=== PATIENT | female | born 1980 | race Two or more races ===

== ENCOUNTER → 2021-02-23 08:24 | Outpatient (CLI) | payer SELFPAY ==
--- NOTE | ~2021-02-23 | US_ITS ---
US thyroid INDICATION: Dysphasia and enlarged thyroid. TECHNIQUE: Real-time sonographic images of the thyroid gland were obtained. COMPARISON: No prior studies for comparison. FINDINGS: The right thyroid lobe measures 5.3 x 1.8 x 1.9 cm. The left thyroid lobe measures 4.9 x 1 .5 x 1.8 cm. There is heterogeneous echotexture and echogenicity throughout the thyroid gland. No dis crete nodules identified. Normal vascular flow is present. IMPRESSION: 1. Mildly enlarged heterogeneous thyroid gland without discrete mass. Reviewed, dictated and finalized at location B.
== END ==
PROVIDERS: PCP Family Medicine; Visit Provider Nurse Practitioner Family
DX: R47.02 Dysphasia (principal); E03.9 Hypothyroidism, unspecified
CPT/HCPCS: 76536

== ENCOUNTER 2025-09-25 10:43 | Outpatient (CLI) | payer SELFPAY ==
--- NOTE | ~2025-09-25 | US_ITS ---
Clinical history:Autoimmune thyroiditis EXAM:Ultrasound thyroid TECHNIQUE:Multiple static grayscale images and color Doppler images were obtained of the thyroid gland. Comparisons:02/23/2021 FINDINGS: Right thyroid lobe is enlarged and heterogeneous measuring 5.9 x 1.7 x 1.7 cm. Minimal vascular flow. Left thyroid lobe is enlarged and heterogeneous measures 5.1 x 1.5 x 1.5 cm. Minimal vascular flow. Isthmus is enlarged and heterogeneous and measures 0.4 cm. Minimal vascular flow. There are a few subcentimeter cysts scattered throughout the thyroid gland. IMPRESSION: 1. Thyroid gland is enlarged and heterogeneous. 2. There are a few subcentimeter cysts scattered throughout the thyroid gland. Reviewed, dictated and finalized at location Q.
== END 2025-09-25 10:44 | disposition home or self-care (01) ==
PROVIDERS: PCP Family Medicine; Visit Provider Nurse Practitioner Family
DX: E06.3 Autoimmune thyroiditis (principal)
CPT/HCPCS: 76536